=== PATIENT | female | born 2000 | race Caucasian/White ===

== ENCOUNTER 2021-01-20 18:02 | Emergency (ER) | payer BC, SELFPAY ==
--- NOTE | ~2021-01-20 | CT_ITS ---
EXAMINATION: CT abdomen pelvis w con DATE: 01/20/2021 20:20 INDICATION: Abdominal pain TECHNIQUE: Computed tomography (CT) of the abdomen and pelvis was performed with 100 mL Omnipaque-350 intravenous contrast. Automated exposure control and iterative reconstruction technique were employe d. The dose-length product was 213.62 mGy-cm. COMPARISON: None FINDINGS: Lung bases are clear. Inferior heart is normal. No pericardial or pleural effusion. Small sliding-typ e hiatal hernia. Liver, gallbladder, pancreas and bilateral adrenal glands are normal. Heterogeneous enhancement of the spleen likely related to phase of contrast. There are multiple regions of decrease d renal parenchymal enhancement but which appears to spare the peripheral-most cortex. The bilateral renal arteries and veins are opacified with contrast.. Bowels including the appendix are normal. Blad alicia, anteverted uterus and bilateral adnexa are unremarkable. No free intraperitoneal gas or fluid. N o pathologically enlarged abdominal or pelvic lymphadenopathy. Bones are unremarkable. IMPRESSION: 1. Small region of decreased parenchymal enhancement throughout both kidneys. Differential would incl ude pyelonephritis although the preserved peripheral rim is a more typical feature of renal vascular compromise which could include renal infarcts or acute tubular necrosis. Correlate with urinalysis. Reviewed, dictated and finalized at location A. IMPRESSION: 1. Small region of decreased parenchymal enhancement throughout both kidneys. D ifferential would include pyelonephritis although the preserved peripheral rim is a more typical feature of renal vascular compromise which could include triston l infarcts or acute tubular necrosis. Correlate with urinalysis.
[2021-01-20 18:09] VITALS: BP 116/75; PULSE 63; RESP 16; TEMP 37.2; O2SAT 98
--- NOTE | 2021-01-20 18:14 | PC.NURSE ---
pt reports she was seen by her doctor today and started on a new migraine medication. pt reports taking zofran without relief yesterday.
--- NOTE | 2021-01-20 18:16 | PC.NURSE ---
mom at bedside stating pt has female problems and they change her pill on her a lot.
--- NOTE | 2021-01-20 18:18 | ED.NAVMDI ---
HPI - Nausea/Vomiting/Diarrhea General Chief complaint: Nausea/Vomiting/Diarrhea Stated complaint: Vomiting Time Seen by Provider: 01/20/21 18:07 Source: RN notes reviewed History of Present Illness HPI Narrative: Patient presents to emergency department from home for nausea and vomiting. Patient states symptoms began 2 days ago she states numerous episodes of nausea vomiting associated with pain in the epigastric upper quadrant left upper quadrant. Patient denies any fevers or chills chest pain or shortness of breath. She states she has a history of recurrent nausea around the time of her menstrual cycle and they have tried changing around her control pill she states she is on her menstrual cycle right now. She states she supposed be seen a GI physician next month she denies any marijuana use denies any other symptoms patient does have Zofran at home which she last took at noon she states she was prescribed Phenergan today as well which she did not take by her PCP she had lab work done as an outpatient was recommended come the ER for IV hydration and she was noted to be dehydrated Related Data Allergies Allergy/AdvReac Type Severity Reaction Status Date / Time No Known Allergies Allergy Verified 01/20/21 18:13 Review of Systems Review of Systems: Narrative: Gen.: Denies fevers or chills ENT: Denies congestion Respiratory: Denies shortness of breath or cough CV: Denies chest pain or palpitations GI: See HPI denies burning, urgency, frequency or hematuria Musculoskeletal: Denies back pain or muscle pain Neuro: Denies numbness, tingling, weakness or focal weakness Skin: Denies rash Except as documented, all other systems reviewed and negative [facility] Past Medical History Medical History (Updated 01/20/21 @ 22:42 by Ramo Isaacs DO) Patient denies significant medical history Social History Social History (Updated 01/20/21 @ 18:20 by Ramo Isaacs DO) Smoking status: Never smoker Exam Narrative: Exam Narrative: APPEARANCE: No acute distress, nontoxic, resting in bed HEENT: Normocephalic, atraumatic, OMM RESPIRATORY: No respiratory distress, clear to auscultation bilaterally with no rhonchi wheezing or rales CARDIOVASCULAR: RRR s murmur ABDOMINAL: Soft, nondistended tender palpation epigastric and right upper quadrant left lower quadrant no tenderness right lower quadrant left lower quadrant no rebound or guarding MUSCULOSKELETAl: Moves all extremities. No clubbing, cyanosis or edema. NEURO: Awake and alert. Following commands, speech normal, no focal deficits SKIN:: Warm, dry. Normal Color PSYCHIATRIC: Normal affect/mood Course Course Emergency Course: Discussed with Dr. Lyons CT scan. States there is a patchy appearance of bilateral kidneys no signs of infection Called discussed with Dr. Izabela Cao for urology presentation work-up we reviewed the CT scans. States he does note mild patchy appearance states no signs of any acute surgical abnormality no concern of pyelonephritis recommends discussing with nephrology Called and discussed with Dr. Barger nephrology presentation work-up at this time no signs of acute renal necrosis recommends discussing with hematology to rule out any sort of infarction possibility Discussed with Dr. Solano for hematology presentation work-up at this time discussed CT results D-dimer no concern of acute infarcting event please patient may follow-up with her PCP She is feeling much better able to eat and drink in the ED Discussed with patient and mother results of CT scan my conversations with nephrology urology and hematology mother states patient has a history of kidney stones with stent placed performed past discussed need for follow-up with PCP Discussed with patient results of workup and diagnosis. Discussed need for follow-up with primary care, proper use of medication, and reasons to return to the emergency department. Patient understands and agrees to current treat
[2021-01-20] MEDS: ONDANSETRON INJ 4 MG/2 ML VIAL IV PUSH (18:37)
[2021-01-20] MEDS: SODIUM CHLORIDE 0.9% IV 1,000 ML 999 ML IV CONT ×2 (18:37→19:34)
[2021-01-20] MEDS: FAMOTIDINE 20 MG/2 ML VIAL IV PUSH (18:37)
[2021-01-20] MEDS: KETOROLAC 30 MG/ML VIAL (*BKC) IV PUSH (18:37)
[2021-01-20 18:57] LABS: Basophils Percent Auto 0.3 % (0.2-1.2); Eosinophils Absolute Auto 0.1 K/mm3 (0-0.3); Eosinophils Percent Auto 0.7 % (0-4.4); Hematocrit 37.2 % (37.0-47.0); Hemoglobin 12.2 g/dL (12.0-15.0); Immature Granulocyte Absolute 0.04 K/mm3 (0.00-0.031); Immature Granulocyte Percent A 0.4 % (0-0.5); Lymphocytes Absolute Auto 2.55 K/mm3 (0.9-3.2); Lymphocytes Percent Auto 26.7 % (18.3-44.2); Mean Corpuscular HGB Conc 32.8 g/dl (32-36); Mean Corpuscular Hemoglobin 28.7 pg (26-34); Mean Corpuscular Volume 87.5 fl (80-100); Monocytes Absolute Auto 0.7 K/mm3 (0.1-0.6); Monocytes Percent Auto 7.2 % (2.6-8.5); Neutrophils Absolute Auto 6.2 K/mm3 (1.3-6.7); Neutrophils Percent Auto 64.7 % (45.5-73.1); Platelet Count Result 251 k/mm3 (150-375); Red Blood Count 4.25 M/mm3 (4.2-5.4); Red Cell Distribution Width 12.6 % (11.5-14.5); White Blood Count 9.5 K/mm3 (4.5-10.0)
[2021-01-20 19:08] LABS: Alanine Aminotransferase 15 U/L (4-35); Albumin Level 3.6 g/dL (3.5-5.1); Alkaline Phosphatase 69 U/L (38-126); Anion Gap 9 mmol/L (8-16); Aspartate Amino Transferase 22 U/L (14-36); Bilirubin,Total 0.3 mg/dL (0.2-1.3); Blood Urea Nitrogen 12 mg/dL (7-17); Calcium 8.6 mg/dL (8.4-10.2); Carbon Dioxide 21 mmol/L (22-30); Chloride 110 mmol/L (98-107); Estimated CRCL calculation 71 ml/min; Estimated Glomerular Filt Rate > 60; Glucose 82 mg/dL (65-105); Lipase 34 U/L (23-300); Potassium 3.6 mmol/L (3.4-5.0); Sodium 140 mmol/L (137-145)
--- NOTE | 2021-01-20 19:15 | PC.NURSE ---
report to michael sanchez
[2021-01-20 20:02] LABS: Add Urine Microscopic? YES; Appearance Urine Clear (Clear); Bilirubin Urine Negative (Negative); Blood Urine 2+ (Negative); Color Urine Yellow (Yellow); Glucose Urine UA Negative (Negative); Ketones Urine 1+ mg/dL (Negative); Leukocyte Esterase Ur Negative LEU/UL (Negative); Mucus Urine Rare /lpf; Nitrate Urine Negative (Negative); Protein Urine Negative (Negative); Specific Grav Ur 1.011 (1.001-1.035); Squamous Epithelial Cell Urine Rare /hpf (Few); Urobilinogen Urine Negative mg/dL (<2.0); WBC Urine 0-3 /hpf
[2021-01-20] MEDS: PROMETHAZINE HCL 25 MG/ML AMPUL 12.5 MG IV PUSH (20:29)
[2021-01-20 20:38] VITALS: BP 103/90; PULSE 79; RESP 16; TEMP 37; O2SAT 97
[2021-01-20 21:48] LABS: Prothrombin Time 13.1 Seconds (11.1-14.7)
[2021-01-20 21:50] LABS: Partial Thromboplastin Time 29.7 SECONDS (22.3-36.8)
[2021-01-20 21:57] LABS: D Dimer 0.51 ug/mL (<0.48)
[2021-01-20 22:56] VITALS: BP 112/79; PULSE 72; RESP 18; O2SAT 99
== END 2021-01-20 23:09 | disposition home or self-care (01) ==
PROVIDERS: Emergency Provider Emergency Medicine; PCP Family Medicine
DX: R11.2 Nausea with vomiting, unspecified (principal); R10.10 Upper abdominal pain, unspecified
CPT/HCPCS: 36415; 74177; 80053; 81001; 81025; 83690; 85025; 85380; 85610; 85730; 96361; 96374; 96375; 99284; J1885; J2405; J2550; J7030; Q9967